=== PATIENT | female | born 1975 | race Caucasian/White ===

== ENCOUNTER → 2018-12-26 11:40 | Outpatient (CLI) | payer OTHER, SELFPAY | PROVIDERS: Visit Provider Obstetrics & Gynecology | DX: N91.2 Amenorrhea, unspecified (principal) | CPT/HCPCS: 36415; 84702; 84703 ==

== ENCOUNTER → 2019-01-02 17:36 | Outpatient (CLI) | payer OTHER, SELFPAY ==
[2019-01-02 19:53] LABS: Chlamydia Trachomatis by PCR Negative (Negative); Neisserai gonorrhoeae by PCR Negative (Negative); Probe Check PASS; Sample Adequacy Control PASS; Specimen Processing Control PASS
[2019-01-09 11:04] LABS: HPV APTIMA, High Risk Negative (Negative)
[2019-01-09 11:28] LABS: HPV Reflexed? YES, CHARGE PATIENT
== END ==
PROVIDERS: Referring Provider Obstetrics & Gynecology; Visit Provider Obstetrics & Gynecology
DX: Z32.01 Encounter for pregnancy test, result positive (principal); Z12.4 Encounter for screening for malignant neoplasm of cervix; Z11.3 Encounter for screening for infections with a predominantly sexual mode of transmission
CPT/HCPCS: 87491; 87591; 87624; 88175; G0145

== ENCOUNTER → 2019-02-01 14:43 | Outpatient (CLI) | payer OTHER, SELFPAY ==
[2019-02-01 15:41] LABS: Color, Urine Yellow (Yellow); Glucose, Dipstick 100 mg/dl (Normal); Ketone-Dipstick 5 mg/dl (Negative); Leukocyte Esterase-Dipstick 25 /ul (Negative); Nitrite-Dipstick Negative (Negative); Occult Blood-Urine 25 /ul (Negative); Protein-Dipstick Negative (Negative); Specific Gravity, Urine 1.025 (1.002-1.030); Urine Bilirubin Dipstick Negative (Negative); Urine Clarity Sl. Cloudy (Clear); Urine Urobilinogen Normal (Normal)
[2019-02-01 15:49] LABS: Absolute Lymphocyte Count 1.63 X10^3/ul (0.83-4.51); Absolute Neutrophil Count 7.7 X10^3/uL (2.0-7.7); Basophil# 0.05 X10^3/uL; Basophil% 0.5 % (0-1); Eosinophil# 0.17 X10^3/uL; Eosinophils% 1.7 % (0-5); Hematocrit 41.5 % (37-47); Lymphocyte # 1.63 X10^3/ul (4.0); Lymphocyte % 15.9 % (19-41); Mean Corp Hgb Conc 33.7 g/gl (32-36); Mean Corpuscular Hgb 30.4 pg (27.0-32.0); Mean Platelet Vol. 10.2 fl (6.2-12.0); Monocyte# 0.61 X10^3/uL; Neutrophil # 7.74 X10^3/uL (2.7-7.7); Neutrophil % 75.5 % (47-70); Platelet Count 290 K/mm3 (150-450); RBC Distribution Width CV 12.9 % (11.6-14.6); Red Blood Count 4.61 M/mm3 (4.2-5.4); White Blood Count 10.2 K/mm3 (4.4-11.0)
[2019-02-01 16:01] LABS: POSITIVE COUNT NO; POSITIVE DIFFERENTIAL NO; POSITIVE MORPHOLOGY NO
[2019-02-01 16:30] LABS: Thyroid Stim Hormone (TSH) 0.03 uIU/mL (0.358-3.74)
[2019-02-01 17:12] LABS: HIV - WCH Non-Reactive (Nonreactive); Rubella IgG 21.8 IU/mL
[2019-02-02 20:21] LABS: Prenatal RPR NONREACTIVE (NONREACTIVE)
[2019-02-03 08:23] LABS: HEPATITIS B SURFACE AG Negative (Negative); Hep C Antibodies <0.1 s/co ratio (0.0-0.9)
== END ==
PROVIDERS: Visit Provider Obstetrics & Gynecology
DX: Z34.81 Encounter for supervision of other normal pregnancy, first trimester (principal)
CPT/HCPCS: 36415; 81002; 84443; 85025; 86703; 86762; 86803; 87340

== ENCOUNTER 2019-05-07 09:15 | Outpatient (CLI) | payer OTHER, SELFPAY ==
[2019-05-07 09:45] VITALS: BMI 23.1
--- NOTE | 2019-05-11 23:06 | OB.TRI.PN ---
Progress Notes Date of Service: 05/07/19 Progress Note: patient seen for vaginal bleeding- noticed it twice whenever she wiped, denies any cramping or contractions, denies any LOF, admits good FM patient evaluted and speculum exam showed no blood, cervix closed, and friable cervical polylp present. fht 140-150 moderate variability gestational age appropriate toco no regular ctx a/p vaginal bleeding - no labor, reassuring status, dc home labor precautions fu in office this week
== END 2019-05-07 12:00 | disposition home or self-care (01) ==
LOC: WPOUT 09:20 → OBT 09:21
PROVIDERS: Visit Provider Obstetrics & Gynecology
DX: O46.90 Antepartum hemorrhage, unspecified, unspecified trimester (principal); Z3A.00 Weeks of gestation of pregnancy not specified
CPT/HCPCS: 59050; 99218; G0378

== ENCOUNTER 2019-05-09 11:00 | Inpatient (IN) | payer OTHER, SELFPAY ==
[2019-05-09] MEDS: Oxytocin 30 units/NS 500 ml 30 UNITS/500 ML IV.SOLN 334 UNITS IV (11:10)
--- NOTE | 2019-05-09 11:20 | PCM.OPRPT ---
Problem List (1) delivery, delivered Status: Acute Vaginal Delivery Maternal Presentation: Active Labor Presents to L and D after delivery of live female outside of hospital Amniotic Membrane Rupture Type: Spontaneous at home Rupture of Membrane time: 1040 Amniotic Fluid Description: Clear Final FELICIA: 08/21/19 Final FELICIA Source: US <20 weeks Gestational age: 25 Weeks and 1 Days doctor who attended delivery (if requested by OB): Regine Guerra Date of Procedure: 05/09/19 Pre-Operative Diagnosis: delivery Post-Operative Diagnosis: same Surgery/ Procedure Performed: Spontaneous Vaginal Delivery Type of Anesthesia: None Description of Procedure: Patient called to report increase in bleeding this morning followed by spontaneous rupture of membranes at 25w1d ega. She delivered shortly thereafter by paramedics. Placenta was delivered spontaneously shortly thereafter. The placenta was examined and appeared to have partial abruption of about 20% and appeared intact with a centrally located 3VC. Inspection revealed an intact cervix, vagina and perineum. Bleeding was light and appropriate for s/p vaginal delivery. Presentation: Vertex Placental Delivery Description: Spontaneous Placenta Disposition: Sent with transport team Percentage of Placenta Abruption: 20 Cord Vessel Description: 3 Vessels Cord Entanglement: None Estimated Blood Loss: 200cc A gender: Female Episiotomy Description: None Laceration: None Medications given after delivery: IV Pitocin Complications: None
[2019-05-09 11:28] VITALS: BMI 23.6
--- NOTE | 2019-05-09 11:28 | DCINST_ITS ---
Discharge Diet: No Restrictions Discharge Activity: Return to Normal Activity, May Drive, May Shower Return to work on:: 06/27/19 May shower in (days): 0 May resume sexual activity in: 4-6 weeks Call your doctor if your incision/area has: Continuous Slow Oozing, Sudden Increased Bleeding Call your doctor if you observe: Fever of 101 or Higher, Inability to urinate, Inability to have a bowel movement, Using more than one pad per hour, Shortness of breath, Chest pain, Calf discomfort, Uncontrolled pain Cleanse incision/area with: Soap & Water Additional Instructions: If you experience any of the following, contact your healthcare provider. * Bleeding that soaks a pad every hour for 2 hours * Fever 100.4 or higher * Unrelieved incision or abdominal pain * Swelling, redness, discharge or bleeding from your incision or episiotomy site * Your incision begins to separate * Problems urinating (including inability to urinate or burning while urinating). * Visual changes * Severe headache * Flu-like symptoms * Pain or redness in one of both of your breasts * Pain, warmth, tenderness or swelling in your legs, especially the calf area * Frequent nausea and vomiting * Symptoms of depression or anxiety If you experience any of the following, call 911 or go to the nearest Emergency Room. * Chest pain * Problems breathing * Seizure activity * Partial or complete paralysis of a body part, slurred speech, weakness or drooping of the face, or a sudden inability to walk or hold your balance Allergies/Adverse Reactions: Allergies No Known Allergies Allergy (Unverified 05/07/19 09:47) Medications to take at Discharge Vits [Prenatabs FA] 1 tablet PO DAILY 05/07/19 Ibuprofen 600 mg PO 4X/DAY #30 tab 05/09/19 The following prescriptions were given: Ibuprofen 600 mg PO 4X/DAY #30 tab Prescription Printed Please Follow Up With: Andrea Munoz MD When: 6 weeks Test Results: Test results from this visit will be discussed in further detail at your follow- up appointment, if applicable. Proposed Discharge Date: 05/09/19
[2019-05-09] MEDS: Oxytocin 30 units/NS 500 ml 30 UNITS/500 ML IV.SOLN 167 UNITS IV (11:40)
[2019-05-09 12:35] LABS: Absolute Lymphocyte Count 0.81 X10^3/ul (0.83-4.51); Absolute Neutrophil Count 15.6 X10^3/uL (2.0-7.7); Basophil# 0.03 X10^3/uL; Basophil% 0.2 % (0-1); Eosinophil# 0.06 X10^3/uL; Eosinophils% 0.3 % (0-5); Hematocrit 36.1 % (37-47); Hemoglobin 12.1 g/dl (12.0-15.0); Lymphocyte # 0.81 X10^3/ul (4.0); Lymphocyte % 4.6 % (19-41); Mean Corp Hgb Conc 33.5 g/gl (32-36); Mean Corpuscular Hgb 30.4 pg (27.0-32.0); Mean Corpuscular Volume 90.7 fL (81-99); Mean Platelet Vol. 9.6 fl (6.2-12.0); Monocyte# 0.83 X10^3/uL; Monocyte% 4.8 % (0-10); Neutrophil # 15.61 X10^3/uL (2.7-7.7); Neutrophil % 89.6 % (47-70); Platelet Count 245 K/mm3 (150-450); RBC Distribution Width CV 13.9 % (11.6-14.6); RBC Distribution Width SD 45.7 fl (35.1-43.9); Red Blood Count 3.98 M/mm3 (4.2-5.4); White Blood Count 17.4 K/mm3 (4.4-11.0)
--- NOTE | 2019-05-09 12:39 | PN.OBGYN_ITS ---
Patient Problems: Active and Suspected Problems delivery, delivered (Acute) Subjective: Doing well in immediate post delivery time frame. No unusual pain. Bleeding appropriate. Objective: Afeb VSS - Physical Exam General: Alert, Oriented x3, Cooperative, No apparent distress Abdomen: Soft, Non Tender, Non-Distended, - - Fundus firm nontender Skin: No rashes Neurological: Neuro grossly intact Psych/Mental Status: Normal Affect Comment: Lochia appropriate Weight: 138 lb Body Mass Index (BMI) 23.6 Laboratory Tests Past 24 Hrs 05/09/19 05/09/19 11:55 11:55 WBC Pending RBC Pending Hgb Pending Hct Pending MCV Pending MCH Pending MCHC Pending RDW Pending RDW Differential Pending Plt Count Pending Neut % (Auto) Pending Absolute Neuts (auto) Pending Total Counted Pending Blood Type Pending Antibody Screen Pending Medical Necessity - Tobacco Use Smoking Status: Former smoker Assessment/Plan All Active Problems delivery, delivered (Acute) S/P vaginal delivery of very . Given option for early discharge so can go to [facility] to be near that is being transported to the NICU there. Home going instructions and warnings given.
[2019-05-09 12:43] LABS: POSITIVE COUNT NO; POSITIVE DIFFERENTIAL NO; POSITIVE MORPHOLOGY NO
[2019-05-09] MEDS: Ibuprofen 600 MG Tablet PO (13:00)
[2019-05-09 14:53] LABS: Amphetamine Urine VISTA NEGATIVE (<1000 ng/mL); Barbiturate Urine VISTA NEGATIVE (< 200 ng/mL); Benzodiazepine Urine VISTA NEGATIVE (< 200 ng/mL); Cocaine Urine VISTA NEGATIVE (< 300 ng/mL); Ecstacy Urine VISTA NEGATIVE (< 500 ng/mL); Methadone Urine VISTA NEGATIVE (< 300 ng/mL); PCP Urine VISTA NEGATIVE (< 25 ng/mL); THC Urine VISTA NEGATIVE (< 50 ng/mL); Vista UDS pH Range 6
--- NOTE | 2019-05-09 15:28 | NURSING ---
Called office and notified Gale that pt's WBC were elevated: 17.4 stating he's aware and continue routine care unless pt develops symptoms.
--- NOTE | 2019-05-09 16:10 | CASEMGMT ---
Social Work Labor and Delivery Patient/mother of baby (AYDEN) presented to [facility] after delivery of 25 week gestational age baby girl at AYDEN's place of employment. MOB and baby arrived via EMS. Father of baby (MOB), MOB's , arrived shortly after. MOB's mother Serena arrived to the unit, tearful, and later FOB's parents. Introduced the parents to social worker masters and role. Answered questions as able and offered emotional support and supportive listening. MOB's mother and FOB's mother tearful. MOB's mother expressing other recent family stressors, supportive listening offered. Per Serena, AYDEN has an 11 year old daughter from a previous relationship, so is also worried about the older daughter Coral. MOB and FOB have been for 3 years and baby is the first child for FOB. 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 During social work interactions with family, MOB and FOB in recovery area close to where baby was being cared for. After MOB returned to room, this contract technical writer briefly touched base with MOB and FOB, family also in the room. Introduced to self. Let MOB and FOB know that if have any questions or if can be of help, social worker masters is available. MOB sitting in racing chair and indicates that not sure how doing yet, still trying to take everything in. MOB looking at a menu with encouragement from Serena to order some food. Plan: Social work remains available for support as indicated. Baby discharged to [facility] for further care and treatment. Anticipating MOB to also discharge today. -ROX Albarran, GREENHOUSE SPECIALIST
== END 2019-05-09 17:40 | disposition home or self-care (01) | DRG 805 ==
LOC: WP 11:04
PROVIDERS: Admitting Provider Obstetrics & Gynecology; Referring Provider Obstetrics & Gynecology; Visit Provider Obstetrics & Gynecology
DX: O60.12X0 Preterm labor second trimester with preterm delivery second trimester, not applicable or unspecified (principal); O45.92 Premature separation of placenta, unspecified, second trimester; Z37.0 Single live birth; Z3A.25 25 weeks gestation of pregnancy; Z87.891 Personal history of nicotine dependence
CPT/HCPCS: 80307; 85025; 86850; 86900

== ENCOUNTER → 2020-01-29 09:58 | Outpatient (CLI) | payer OTHER, SELFPAY ==
[2020-01-29 12:48] LABS: Anion Gap 8 (5-15); BUN 13 mg/dL (7-18); BUN/Creat Ratio 17.7 RATIO (10-20); Calcium,Total 8.6 mg/dL (8.5-10.1); Chloride 105 mmol/L (98-107); Cholesterol 201 mg/dL (200); Creatinine, Serum 0.73 mg/dL (0.55-1.02); EST Glomerular Filtration Rate 91 mL/min (>60); Est Glom Filt Rate - Afr Amer 110 mL/min (>60); Glucose 85 mg/dL (74-106); High Density Lipoprotein 56 mg/dL; Potassium 3.8 mmol/L (3.5-5.1); Sodium Level 141 mmol/L (136-145); Triglycerides 118 mg/dL; Very Low Density Lipoprotein 24 mg/dL (5-40)
[2020-01-29 12:50] LABS: Vitamin D,25 Hydroxy 18.6 ng/mL
== END ==
PROVIDERS: PCP Family Medicine; Referring Provider Family Medicine; Visit Provider Family Medicine
DX: Z00.00 Encounter for general adult medical examination without abnormal findings (principal)
CPT/HCPCS: 36415; 80048; 80061; 82306

== ENCOUNTER → 2020-04-09 | Outpatient (CLI) | payer OTHER, SELFPAY | END | disposition home or self-care (01) | PROVIDERS: PCP Family Medicine; Referring Provider Family Medicine; Visit Provider Family Medicine | DX: N39.0 Urinary tract infection, site not specified (principal) | CPT/HCPCS: 87086 ==

== ENCOUNTER → 2021-07-17 | Outpatient (CLI) | payer OTHER, SELFPAY ==
[2021-07-23 16:33] LABS: HPV Reflexed? NOT INDICATED
== END | disposition home or self-care (01) ==
PROVIDERS: Visit Provider Obstetrics & Gynecology
DX: Z12.4 Encounter for screening for malignant neoplasm of cervix (principal)
CPT/HCPCS: 88175; G0145

== ENCOUNTER 2022-02-18 09:08 | Outpatient (CLI) | payer BC, SELFPAY ==
--- NOTE | 2022-02-18 09:11 | RAD_ITS ---
STUDY: X-RAY CHEST REASON FOR EXAM: Female, 46 years old. Persistent cough x4 weeks TECHNIQUE: PA and lateral views of the chest. COMPARISON: None. FINDINGS: Hyperinflation. There is no demonstrated pleural abnormality. Normal size heart. Normal mediastinum and camilo. Normal visualized pulmonary arteries. Normal visualized aortic arch and descending thoracic aorta. Normal visualized thoracic spine. Normal visualized ribs, clavicles, and shoulders. There is no demonstrated abnormality of the visualized soft tissue structures of the upper abdomen. RAD/Chest PA and Lateral IMPRESSION: Hyperinflation. The lungs are clear. Electronically Signed: Audi Shields MD at 13:46 EDT ,
== END 2022-02-18 23:59 | disposition home or self-care (01) ==
PROVIDERS: PCP Registered Nurse; Referring Provider Registered Nurse; Visit Provider Registered Nurse
DX: J20.8 Acute bronchitis due to other specified organisms (principal)
CPT/HCPCS: 71046

== ENCOUNTER 2022-10-05 15:20 | Outpatient (CLI) | payer BC, SELFPAY ==
--- NOTE | 2022-10-05 15:22 | BI_ITS ---
MAMMOGRAPHY - BILATERAL SCREENING REASON FOR EXAM: Female, 47 years old. Routine annual screening examination. PERTINENT HISTORY: Non-contributory. TECHNIQUE: Digital bilateral breast haydee (3D mammographic acquisition) in the CC and MLO projections. 2-D mediolateral oblique (MLO) and craniocaudad (CC) views of both breasts were obtained. CAD: Full Field Digital Mammography with Computer Added Detection was performed. COMPARISON: Comparison is made with prior study dated 06/30/2017. FINDINGS: Breast Composition: The breasts are heterogeneously dense, which may obscure small masses. There are no dominant masses or suspicious calcifications. No other significant abnormalities are identified. There has been no significant change since the prior study. BI/SCRN MAMM (CAD)W/HAYDEE BILAT IMPRESSION: Stable bilateral screening mammogram. Yearly follow-up mammogram recommended. (A) ASSESSMENT CATEGORY: BIRADS Category 1: Negative. A letter regarding these results will be sent to the patient by the facility within 30 days. Approximately 10% of breast cancers are not detected by mammography. A normal mammogram should not delay biopsy of a clinically suspicious abnormality. [id number] Electronically Signed: Audi Shields MD at 8:18 EST ,
== END 2022-10-05 23:59 | disposition home or self-care (01) ==
LOC: OPBI 15:20
PROVIDERS: PCP Family Medicine; Visit Provider Obstetrics & Gynecology
DX: Z12.31 Encounter for screening mammogram for malignant neoplasm of breast (principal); Z12.4 Encounter for screening for malignant neoplasm of cervix
CPT/HCPCS: 77063; 77067